=== PATIENT | male | born 1985 | race Caucasian/White ===

== ENCOUNTER 2016-10-15 07:07 | Day surgery (SDC) | payer BC, OTHER ==
[2016-10-15] MEDS ORDERED: Lactated Ringers 1,000 ML IV SCH (07:15)
[2016-10-15] MEDS ORDERED: Sodium Chloride 0.9% 10 ML Syringe FLUSH PRN (07:15)
[2016-10-15] MEDS ORDERED: Propofol 200 MG/20 ML SDV IV ONE (09:00)
[2016-10-15] MEDS ORDERED: Midazolam 1 MG/ML 2 ML SDV IV ONE (09:00)
[2016-10-15] MEDS ORDERED: Lidocaine 2% 100 MG/5 ML Syringe IVPUSH ONE (09:00)
--- NOTE | 2016-10-15 09:23 | PCM.OPNOTE ---
- General Post-Op/Procedure Note Date of Surgery/Procedure: 10/15/16 Operative Procedure(s): egd with bx Findings: gastritis esophagitis Pre Op Diagnosis: epigastric abd pain Post-Op Diagnosis: gastritis. esophagitis Anesthesia Technique: MAC Primary Surgeon: Jaime Charlton Anesthesia Provider: Aminata Heredia Pathology: stomach and esophagus Complications: None Condition: Good Free Text/Narrative:: see dictation
[2016-10-15 10:48] VITALS: BP 128/90
--- NOTE | 2016-10-15 12:28 | OR ---
DATE OF OPERATION: 10/15/2016 SURGEON: Jaime Charlton MD PROCEDURE PERFORMED: Esophagogastroduodenoscopy with cold forceps biopsy. PREOPERATIVE DIAGNOSIS: Epigastric pain. POSTOPERATIVE DIAGNOSIS: Gastritis and esophagitis. INDICATIONS FOR PROCEDURE: This is a 31-year-old white male, who is referred with the above-mentioned history. He was offered and accepted an EGD. DESCRIPTION OF OPERATION: After an excellent IV sedation was administered, the bite block was inserted. The flexible endoscope was passed without difficulty down the patient's esophagus into the stomach. The stomach was insufflated. Scope was passed through the pylorus to the second portion of the duodenum and slowly withdrawn. The following findings were noted: Duodenum, unremarkable. Stomach, diffuse gastritis, multiple biopsies were taken. GE junction measured at 40 cm. The esophagus demonstrated some esophagitis involving the distal esophagus, which was biopsied as well. The stomach was deflated, scope was removed. The patient tolerated the procedure well and was taken to recovery room in good condition. /[id number] /MAURY
== END 2016-10-15 10:30 | disposition home or self-care (01) ==
LOC: FB.SDS 07:07
PROVIDERS: ATTEND Surgery
DX: K20.9 Esophagitis, unspecified (principal); K31.89 Other diseases of stomach and duodenum; Z88.8 Allergy status to other drugs, medicaments and biological substances; Z98.890 Other specified postprocedural states; Z87.891 Personal history of nicotine dependence; Z72.0 Tobacco use
CPT/HCPCS: 43239; 88305; 88342; J2250; J2704; J7120

== ENCOUNTER 2019-12-29 01:09 | Emergency (ER) | payer BC ==
[2019-12-29] MEDS ORDERED: Ketorolac 60 MG/2 ML SDV IM ONE (02:00)
--- NOTE | 2019-12-29 02:07 | EDM.PDOC ---
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, he has had occasional back pain in the past for 2w he has had pain off and on in his back, not inc'd with any particular activity, not at any particular time of day he went to chiropractor 2d ago, got worse, when back yesterday, got worse again had difficulty sleeping, took cyclobenzaprine and acetaminophen which has not helped get pain down his RLE and tingling in his R foot MPMP neg 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 10/15/16 [Rx] Cyclobenzaprine HCl 10 mg PO TID PRN #15 tablet 12/29/19 [Rx] Past Medical History - Past Health History Medical/Surgical History: Denies Medical/Surgical History Respiratory History: Reports: Asthma Gastrointestinal History: Reports: Irritable Bowel Syndrome Other Gastrointestinal History: EPIGASTRIC PAIN Musculoskeletal History: Reports: Back Pain, Chronic, Neck Pain, Chronic, Other (See Below) Other Musculoskeletal History: states he always has back and neck pain Endocrine/Metabolic History: Reports: Obesity/BMI 30+ - Infectious Disease History Infectious Disease History: Reports: Chicken Pox - Past Surgical History HEENT Surgical History: Reports: Oral Surgery, Tonsillectomy Musculoskeletal Surgical History: Reports: Other (See Below) Other Musculoskeletal Surgeries/Procedures:: reports surgery on hand, knee and finger Dermatological Surgical History: Reports: Skin Graft Social & Family History - Tobacco Use Smoking Status *Q: Heavy Tobacco Smoker Years of Tobacco use: 20 Packs/Tins Daily: 1 - Caffeine Use Caffeine Use: Reports: Tea - Recreational Drug Use Recreational Drug Use: No ED ROS GENERAL - Review of Systems Review Of Systems: See Below Constitutional: Reports: No Symptoms HEENT: Reports: No Symptoms Respiratory: Reports: No Symptoms Cardiovascular: Reports: No Symptoms Endocrine: Reports: No Symptoms GI/Abdominal: Reports: No Symptoms : Reports: No Symptoms Musculoskeletal: Reports: Back Pain Skin: Reports: No Symptoms Neurological: Reports: No Symptoms Psychiatric: Reports: No Symptoms Hematologic/Lymphatic: Reports: No Symptoms Immunologic: Reports: No Symptoms ED EXAM, GENERAL - Physical Exam Exam: See Below Exam Limited By: No Limitations General Appearance: Alert, WD/WN, Moderate Distress Nose: Normal Inspection, Normal Mucosa, No Blood Throat/Mouth: Normal Inspection Head: Atraumatic Respiratory/Chest: No Respiratory Distress Cardiovascular: Regular Rate, Rhythm Back Exam: Other (intermittent spasm, 1+ tender at R iliac crest and along l- spine, no SI joint tender, stands rather stiffly, SLR 60 degrees b/l without radiculopathy, 2+ brisk Achilles tendon b/l, 1-2+ R patella and 2+ L patella DTR, great toe extension 5/5 b/l, m/s intact at feet b/l) Extremities: Normal Inspection, Non-Tender, No Pedal Edema Neurological: Alert, Oriented, CN II-XII Intact, Normal Cognition, No Motor/Sensory Deficits Psychiatric: Normal Affect, Normal Mood Skin Exam: Warm, Dry, Intact, Normal Color, No Rash Lymphatic: No Adenopathy Course - Vital Signs Last Recorded V/S: Last Vital Signs Temp 36.6 C 12/29/19 01:15 Pulse 80 12/29/19 01:15 Resp 16 12/29/19 01:15 BP 150/104 H 12/29/19 01:15 Pulse Ox 98 12/29/19 01:15 - Orders/Labs/Meds Orders: Active Orders 24 hr Category Date Time Status Lumbar Spine Min 4V [CR] Stat Exams 12/29/19 02:01 Taken Meds: Medications Discontinued Medications Generic Name Dose Route Start Last Admin Trade Name Freq PRN Reason Stop Dose Admin Ketorolac Tromethamine 60 mg 12/29/19 02:00 12/29/19 02:05 Toradol IM 12/29/19 02:01 60 mg ONETIME ONE Administration - Re-Assessments/Exams Free Text/Narrative Re-Assessment/Exam: 12/29/19 02:56 XR LS spine neg on prelim ED read, no DJD Departure - Departure Time of Disposition: 02:52 Disposition: Home, Self-Care 01 Condition: Good Clinical Impression: Low back strain - Discharge Information *PRESCRIPTION DRUG MONITORING PROGRAM REVIEWED*: Yes *COPY OF PRESCRIPTION DRUG MONITORING REPORT IN PATIENT GABI: Yes Prescriptions: Cyclobenzaprine HCl 10 mg PO TID PRN #15 tablet PRN Reason: Spasms Instructions: Lumbar Sprain Referrals: Ej Garcia MD [Primary Care Provider] - Forms: ED Department Discharge Additional Instructions: For pain and inflammation, take ibuprofen 200 mg 4 tabs and acetaminophen 500 mg 2 tabs 3 times a day for one week, longer if needed. For muscle spasm, take cyclobenzaprine 10 mg 1 tab 3 times a day as needed. Sleep on a firm mattress. Use ice for 10 minutes 4 times a day. No work today. See Dr Garcia in the next several days for further evaluation and recommendations and to recheck your blood pressure which is running a little high. When working, to the extent possible, keep your shoulder squared off over your hips and your elbows at your side. The bone looks quite healthy on your x-rays. Sepsis Event Note (ED) - Evaluation Sepsis Screening Result: No Definite Risk - Focused Exam Vital Signs: Vital Signs Temp Pulse Resp BP Pulse Ox 12/29/19 01:15 36.6 C 80 16 150/104 H 98 - My Orders Last 24 Hours: My Active Orders 12/29/19 02:01 Lumbar Spine Min 4V [CR] Stat - Assessment/Plan Last 24 Hours: My Active Orders 12/29/19 02:01 Lumbar Spine Min 4V [CR] Stat
[2019-12-29 02:57] VITALS: BP 144/97; PULSE 72
--- NOTE | 2019-12-29 10:00 | CR ---
INDICATION: Low back pain. No history of trauma. LUMBOSACRAL SPINE: Five views of the lumbosacral spine were obtained 12/29/19 - no comparison. Decreased disc space is noted at L4-5 suggesting disc disease. Only very minimal hypertrophic change is noted anteriorly off the vertebral body of L5 along its cranial aspect. This is a minimal finding and no significant hypertrophic degenerative changes are suggested. There is some minimal sclerosis at the right-sided L5-S1 apophyseal joints and to a much lesser extent on the left. At the edges of the joints, there are some areas of narrowing more prominently on the left also. Except for the decreased disc space at L4-5, vertebral body and disc heights were well maintained. The pedicles appear to be intact. Bone density appeared to be normal. Some minimal intervertebral disc herniations are noted in the mid and upper levels as well as T12. Sacroiliac joints are intact. IMPRESSION: Disc disease suggested at L4-5 with some minor degenerative changes at L5-S1 apophyseal joints. MTDD
== END 2019-12-29 03:02 | disposition home or self-care (01) ==
LOC: FB.ED 01:09
DX: S39.012A Strain of muscle, fascia and tendon of lower back, initial encounter (principal); J45.909 Unspecified asthma, uncomplicated; E66.9 Obesity, unspecified; Z68.37 Body mass index [BMI] 37.0-37.9, adult; Z88.5 Allergy status to narcotic agent; F17.210 Nicotine dependence, cigarettes, uncomplicated; X50.9XXA Other and unspecified overexertion or strenuous movements or postures, initial encounter
CPT/HCPCS: 72110; 96372; 99283-25; J1885